=== PATIENT | female | born 1980 | race Two or more races ===

== ENCOUNTER 2019-02-25 03:50 | Emergency (ER) | payer SELFPAY ==
[~2019-02-25] VITALS: Ht 167.6 cm; Wt 45.4 kg
[2019-02-25 03:59] VITALS: BP 148/87
== END 2019-02-25 06:57 | disposition left against medical advice (07) ==
LOC: ER 03:50 → EDBD 03:50 → ER 06:49
DX: F41.9 Anxiety disorder, unspecified (principal); Z53.21 Procedure and treatment not carried out due to patient leaving prior to being seen by health care provider